=== PATIENT | female | born 1975 | race Caucasian/White ===

== ENCOUNTER → 2023-09-11 11:28 | Outpatient (CLI) | payer OTHER, SELFPAY ==
[2023-09-11 12:08] LABS: Add Manual Diff / Slide Review NO; Basophils Absolute Auto 100 /uL (0-100); Basophils Percent Auto 1.3 % (0-2); Eosinophils Absolute Auto 300 /uL (0-450); Eosinophils Percent Auto 5.4 % (2-4); Hematocrit 40.7 % (36-46); Hemoglobin 13.6 g/dL (12.0-16.0); Lymphocytes Absolute Auto 1700 /uL (1100-4500); Lymphocytes Percent Auto 35.9 % (25-40); Mean Corpuscular HGB Conc 33.3 % (30-36); Mean Corpuscular Hemoglobin 29.8 PG (26-34); Mean Corpuscular Volume 89.5 fL (80-100); Monocytes Absolute Auto 500 /uL (0-900); Monocytes Percent Auto 10.7 % (3-14); Neutrophils Absolute Auto 2200 /uL (1500-7000); Neutrophils Percent Auto 46.7 % (50-75); Platelet Count 289 X10^3/uL (150-400); Red Blood Cell Count 4.55 X10^6/uL (4.0-5.2); Red Cell Distribution Width 13.8 % (11.6-14.8); White Blood Cell Count 4.8 X10^3/uL (4.5-11.0)
[2023-09-11 17:37] LABS: Alanine Aminotransferase 13 IU/L (<35); Albumin 4.3 g/dL (3.5-5.0); Alkaline Phosphatase 41 U/L (38-126); Aspartate Aminotransferase 25 IU/L (14-36); BUN Creatinine Ratio 15.6 (6-22); Bilirubin Total 0.3 mg/dL (0.2-1.3); Blood Urea Nitrogen 10 mg/dL (7-17); Carbon Dioxide 28 mmol/L (22-32); Chloride 106 mmol/L (98-107); Cholesterol 190 mg/dL (140-199); Estimated Glomerular Filt Rate > 60 mL/min (>60); Globulin 2.1 g/dL (1.7-4.1); Glucose 85 mg/dL (70-100); HDL Cholesterol 79 mg/dL (40-60); HEMOLYSIS < 15 (0-50); LDL Cholesterol Calculated 102 mg/dL (<100); Potassium 4.5 mmol/L (3.4-5.1); Sodium 138 mmol/L (137-145); Total Protein 6.4 g/dL (6.3-8.2); Triglycerides 45 mg/dL (35-150)
[2023-09-11 17:43] LABS: Free T3, Triiodothyronine Free 5.81 pg/mL (2.77-5.27)
[2023-09-11 17:56] LABS: Thyroid Stimulating Hormone 2.85 uIU/mL (0.47-4.68)
[2023-09-11 18:09] LABS: Ferritin 28 ng/mL (6-137)
[2023-09-12 08:17] LABS: Thyroid Peroxidase Antibodies 10 IU/mL (0-34)
== END ==
PROVIDERS: PCP Naturopath; Referring Provider Naturopath; Visit Provider Naturopath
DX: Z00.00 Encounter for general adult medical examination without abnormal findings (principal); R53.83 Other fatigue; N92.0 Excessive and frequent menstruation with regular cycle
CPT/HCPCS: 36415; 80053; 80061; 82728; 84439; 84443; 84481; 85025; 86376

== ENCOUNTER → 2023-11-25 10:45 | Outpatient (CLI) | payer OTHER, SELFPAY ==
[2023-11-25 11:56] LABS: Free T3, Triiodothyronine Free 3.78 pg/mL (2.77-5.27)
[2023-11-25 12:10] LABS: Thyroid Stimulating Hormone 5.48 uIU/mL (0.47-4.68)
[2023-11-25 12:15] LABS: Ferritin 28 ng/mL (6-137)
== END ==
LOC: LAB 10:46
PROVIDERS: PCP Naturopath; Referring Provider Naturopath; Visit Provider Naturopath
DX: R94.6 Abnormal results of thyroid function studies (principal); N92.0 Excessive and frequent menstruation with regular cycle
CPT/HCPCS: 36415; 82728; 84432; 84439; 84443; 84481; 86376; 86800

== ENCOUNTER → 2024-01-15 14:28 | Outpatient (CLI) | payer OTHER, SELFPAY ==
[2024-01-15 15:36] LABS: Hematocrit 43.1 % (36-46); Hemoglobin 14.5 g/dL (12.0-16.0)
[2024-01-15 16:37] LABS: Thyroid Stimulating Hormone 3.78 uIU/mL (0.47-4.68)
[2024-01-15 16:40] LABS: Ferritin 45 ng/mL (6-137)
[2024-01-15 17:46] LABS: Free T4, Direct Thyroxine 0.81 ng/dL (0.78-2.19)
== END ==
PROVIDERS: PCP Naturopath; Referring Provider Naturopath; Visit Provider Naturopath
DX: E03.9 Hypothyroidism, unspecified (principal); E61.1 Iron deficiency
CPT/HCPCS: 36415; 82728; 84439; 84443; 84481; 85014; 85018

== ENCOUNTER → 2024-01-27 10:20 | Outpatient (CLI) | payer OTHER, SELFPAY ==
--- NOTE | 2024-01-27 10:20 | DI.US.S_ITS ---
PROCEDURE: US ABDOMEN LIMITED INDICATIONS: ABDOMINAL PAIN TECHNIQUE: Real-time focused scanning was performed of the abdomen, with image documentation. COMPARISON: None. FINDINGS: Liver measures 13.4 cm without focal mass. Gallbladder demonstrates no stones. Wall thickness is normal measuring 2 mm. Common bile duct measures 4.9 mm without visualized intra or extra biliary dilation. Visualized portions the pancreas are unremarkable. IMPRESSION: Unremarkable exam. Dictated by: Nina Fortune M.D. on 01/27/2024 at 16:47 Approved by: Nina Fortune M.D. on 01/27/2024 at 16:47
== END ==
PROVIDERS: PCP Naturopath; Referring Provider Naturopath; Visit Provider Naturopath
DX: R10.9 Unspecified abdominal pain (principal)
CPT/HCPCS: 76705

== ENCOUNTER → 2024-03-09 12:37 | Outpatient (CLI) | payer OTHER, SELFPAY ==
[2024-03-11 14:09] LABS: H. Pylori Antigen Stool Negative (Negative)
== END ==
PROVIDERS: PCP Naturopath; Referring Provider Naturopath; Visit Provider Naturopath
DX: K21.9 Gastro-esophageal reflux disease without esophagitis (principal); R10.13 Epigastric pain
CPT/HCPCS: 87338

== ENCOUNTER → 2024-10-15 08:26 | Outpatient (CLI) | payer OTHER, SELFPAY ==
[2024-10-15 09:13] LABS: Add Manual Diff / Slide Review NO; Basophils Absolute Auto 100 /uL (0-100); Basophils Percent Auto 2.1 % (0-2); Eosinophils Absolute Auto 200 /uL (0-450); Eosinophils Percent Auto 4.9 % (2-4); Hematocrit 40.7 % (36-46); Hemoglobin 13.7 g/dL (12.0-16.0); Lymphocytes Absolute Auto 1600 /uL (1100-4500); Lymphocytes Percent Auto 31.9 % (25-40); Mean Corpuscular HGB Conc 33.8 % (30-36); Mean Corpuscular Hemoglobin 30.7 PG (26-34); Mean Corpuscular Volume 90.8 fL (80-100); Monocytes Absolute Auto 500 /uL (0-900); Neutrophils Absolute Auto 2400 /uL (1500-7000); Neutrophils Percent Auto 50.1 % (50-75); Platelet Count 267 X10^3/uL (150-400); Red Blood Cell Count 4.48 X10^6/uL (4.0-5.2); Red Cell Distribution Width 13.7 % (11.6-14.8); White Blood Cell Count 4.9 X10^3/uL (4.5-11.0)
[2024-10-15 09:36] LABS: HEMOLYSIS < 15 (0-50)
[2024-10-15 09:39] LABS: Alanine Aminotransferase 17 IU/L (<35); Albumin 4.3 g/dL (3.5-5.0); Alkaline Phosphatase 49 U/L (38-126); Aspartate Aminotransferase 27 IU/L (14-36); BUN Creatinine Ratio 12.9 (6-22); Bilirubin Total 0.5 mg/dL (0.2-1.3); Blood Urea Nitrogen 8 mg/dL (7-17); Calcium 9.1 mg/dL (8.4-10.2); Carbon Dioxide 26 mmol/L (22-32); Chloride 106 mmol/L (98-107); Cholesterol 178 mg/dL (140-199); Estimated Glomerular Filt Rate > 60 mL/min (>60); Globulin 2.1 g/dL (1.7-4.1); Glucose 86 mg/dL (70-99); HDL Cholesterol 60 mg/dL (40-60); LDL Cholesterol Calculated 106 mg/dL (<100); Potassium 4.2 mmol/L (3.4-5.1); Sodium 137 mmol/L (137-145); Total Protein 6.4 g/dL (6.3-8.2); Triglycerides 60 mg/dL (35-150)
[2024-10-15 10:05] LABS: Thyroid Stimulating Hormone 3.54 uIU/mL (0.47-4.68)
[2024-10-15 10:13] LABS: Free T3, Triiodothyronine Free 4.09 pg/mL (2.77-5.27); Free T4, Direct Thyroxine 0.81 ng/dL (0.78-2.19)
[2024-10-15 10:25] LABS: Vitamin B12 639 pg/mL (239-931)
[2024-10-15 10:33] LABS: Ferritin 39 ng/mL (6-137)
== END ==
PROVIDERS: PCP Naturopath; Referring Provider Naturopath; Visit Provider Naturopath
DX: E03.9 Hypothyroidism, unspecified (principal); E61.1 Iron deficiency; K21.9 Gastro-esophageal reflux disease without esophagitis; Z00.00 Encounter for general adult medical examination without abnormal findings
CPT/HCPCS: 36415; 80053; 80061; 82607; 82728; 84439; 84443; 84481; 85025